=== PATIENT | male | born 1975 | race Caucasian/White ===

== ENCOUNTER 2017-09-15 15:25 | Emergency (ER) | payer OTHER ==
[2017-09-15 15:56] VITALS: RESP 20
[2017-09-15] MEDS ORDERED: KETOROLAC 30 MG/ML 1 ML VIAL IM STA (18:26)
[2017-09-15] MEDS ORDERED: CYCLOBENZAPRINE 10 MG TAB PO STA (18:39)
--- NOTE | 2017-09-15 18:41 | ED ---
Back Pain HPI - General Chief Complaint: Back Pain/Injury Stated Complaint: Back /Neck pain Time Seen by Provider: 09/15/17 17:54 Source: patient Limitations: no limitations - History of Present Illness Initial Comments: This is a 41-year-old male past medical history of opioid and benzo abuse, right arm amputation, spondylolisthesis with radiculitis of his lumbar spine and previous disc herniation of the cervical spine who presents today for chief complaint of neck and low back pain after fall. Patient states that he was walking upstairs when he tripped, and he was not wearing his prosthetic is right arm surgery fell catching himself with his left arm twisting his lower back and neck. After the fall patient stated that he had worsening numbness in digits 4 and 5 of the left hand than baseline, pain in the left side neck and diffuse lower back pain worse than baseline. Pt denies falling down the stairs, hitting his head, injury to any extremity, loss of bowel or bladder control, urinary retention. Pt states that he was able to urinate prior to presentation without difficulty. Patient denies any recent fever, chills, shortness of breath , chest pain, back pain, abdominal pain, nausea or vomiting, numbness or tingling, dysuria or hematuria, constipation or diarrhea, headaches or visual changes, or any other complaints. - Related Data Previous Rx's Medication Instructions Recorded Cyclobenzaprine [Flexeril] 5 mg PO HS 5 Days #5 tab 09/15/17 Ibuprofen [Motrin] 800 mg PO Q6H PRN 5 Days #20 tab 09/15/17 predniSONE 50 mg PO DAILY 5 Days #5 tab 09/15/17 Allergies Allergy/AdvReac Type Severity Reaction Status Date / Time No Known Allergies Allergy Verified 09/15/17 15:56 Review of Systems ROS Statement: Those systems with pertinent positive or pertinent negative responses have been documented in the HPI. ROS Other: All systems not noted in ROS Statement are negative. Constitutional: Denies: fever, chills Eyes: Denies: vision change Respiratory: Denies: cough Cardiovascular: Denies: chest pain, palpitations Endocrine: Denies: as per HPI Gastrointestinal: Denies: abdominal pain, nausea, vomiting, diarrhea, constipation Genitourinary: Denies: urgency, dysuria, frequency Musculoskeletal: Reports: as per HPI. Denies: joint swelling, arthralgia Skin: Denies: rash, lesions Neurological: Reports: as per HPI. Denies: headache, weakness, paresthesias, abnormal gait Past Medical History Past Medical History: No Reported History Additional Past Medical History / Comment(s): Addiction to benzos and opiods. History of Any Multi-Drug Resistant Organisms: None Reported Past Surgical History: Orthopedic Surgery Additional Past Surgical History / Comment(s): rt arm amputation Past Psychological History: No Psychological Hx Reported Smoking Status: Current every day smoker Past Alcohol Use History: None Reported Past Drug Use History: IV Drug Use General Exam - General Exam Comments Initial Comments: General: The patient is awake and alert, in no distress, and does not appear acutely ill. Eye: Pupils are equal, round and reactive to light, extra-ocular movements are intact. No nystagmus. There is normal conjunctiva bilaterally. No signs of icterus. Ears, nose, mouth and throat: There are moist mucous membranes and no oral lesions. Neck: The neck is supple, there is no tenderness or JVD. Cardiovascular: There is a regular rate and rhythm. No murmur, rub or gallop is appreciated. Respiratory: Lungs are clear to auscultation, respirations are non-labored, breath sounds are equal. No wheezes, stridor, rales, or rhonchi. Gastrointestinal: [Soft, non-distended, non-tender abdomen without masses or organomegaly noted. There is no rebound or guarding present. No CVA tenderness. Bowel sounds are unremarkable.] Musculoskeletal: Normal ROM, no tenderness. Strength 5/5. Sensation intact. Pulses equal bilaterally 2+. Neurological: A&O x 3. CN II-XII intact,Coordination appears grossly intact. Speech is normal. Pt able to flex and extend, laterally flex and rotate the cervical spine, there is not midline tenderness. Tenderness to palpation over the left paravertebral muscles of the cervical spine. There is midline tenderness to the lumbar spine as well as b/l paravertebral mm tenderness. Pt is able to extend and flex the lumbar spine however limited secondary to pain. Full sensation to the inner things and LE b/l. Pt able to ambulate, however he has footdrop at baseline. Full ROM and 5/5 muscle strength of the left LLE. Pt has decreased sensation of the left digits 4 and 5. Full sensation of the remainder of the left upper extremity. +2 DTR patellar b/l. Skin: Skin is warm and dry and no rashes or lesions are noted. Psychiatric: Cooperative, appropriate mood & affect, normal judgment. Limitations: no limitations Course Vital Signs 09/15/17 15:53 Temperature 98.6 F Pulse Rate 100 Respiratory 20 Rate Blood Pressure 159/83 O2 Sat by Pulse 97 Oximetry - Reevaluation(s) Reevaluation #1: I entered room pt was sitting comfortably on his back, watching a video with his neck flexed on his phone. 09/15/17 16:41 Medical Decision Making - Medical Decision Making X-rays of the cervical and lumbar spine were obtained, revealing mild spondylosis at C4 and 5 as well as mild spurring of the lumbar spine with no signs of acute injury. Upon reevaluation patient after receiving a 30 mg IM Toradol shot and 10 mg of Flexeril by mouth he states he experienced a good amount of relief. The case was discussed with Dr. Muñoz, we feel at this time that this is a muscle strain of the cervical and lumbar paravertberal muscles. The patient will be discharged with rx for prednisone 50mg PO daily, flexeril and ibuprofen 800mg. The patient was instructed to follow-up with PCP in 1-2 days and to make an appointment with orthopedics this week for acute on chronic low back pain. Patient agreed with the plan and was given the warning signs of cauda equina including loss of bowel, bladder control. Pt was discharged in stable condition. VS WNL. Disposition Clinical Impression: Mechanical back pain, Strain of lumbar region Disposition: HOME SELF-CARE Condition: Good Instructions: Acute Low Back Pain (ED), Chronic Back Pain (ED) Additional Instructions: Please use medication as discussed. Please follow-up with family doctor in the next 2 days of symptoms have not improved. Please follow-up with orthopedics within the week for chronic back pain. Please return to emergency room if the symptoms increase or worsen or for any other concerns. Prescriptions: Cyclobenzaprine [Flexeril] 5 mg PO HS 5 Days #5 tab Ibuprofen [Motrin] 800 mg PO Q6H PRN 5 Days #20 tab PRN Reason: Pain predniSONE 50 mg PO DAILY 5 Days #5 tab Is patient prescribed a controlled substance at d/c from ED?: No Referrals: None,Stated [Primary Care Provider] - 1-2 days Durga Ordoñez MD [Medical Doctor] - 1-2 days Decision Time: 19:43
--- NOTE | 2017-09-15 19:31 | XR ---
EXAMINATION TYPE: XR cervical spine limited DATE OF EXAM: 09/15/2017 COMPARISON: NONE HISTORY: Left-sided neck pain TECHNIQUE: 3 views FINDINGS: Vertebra have normal alignment. Posterior elements are intact. There is anterior spurring a t C4-5. There are no cervical ribs. Atlantoaxial facet joint is normal. IMPRESSION: Mild spondylosis at C4-5. Otherwise negative exam.
--- NOTE | 2017-09-15 19:33 | XR ---
EXAMINATION TYPE: XR lumbar spine 2 or 3V DATE OF EXAM: 09/15/2017 COMPARISON: NONE HISTORY: Low back pain TECHNIQUE: 3 views FINDINGS: Lumbar vertebra have normal alignment. Disc spaces are fairly normal. There is minimal spur ring of the endplates. Sacroiliac joints appear intact. IMPRESSION: Mild spurring. Otherwise negative lumbar spine exam. No fracture.
[2017-09-15 20:11] VITALS: BP 155/75; PULSE 89; TEMP 98.3
== END 2017-09-15 20:10 | disposition home or self-care (01) ==
LOC: EC 15:25
DX: S39.012A Strain of muscle, fascia and tendon of lower back, initial encounter (principal); M54.2 Cervicalgia; R20.0 Anesthesia of skin; F17.200 Nicotine dependence, unspecified, uncomplicated
CPT/HCPCS: 72040; 72100; 99283; 96372; J1885